=== PATIENT | male | born 1990 | race Caucasian/White ===

== ENCOUNTER → 2017-02-07 | Outpatient (CLI) | payer OTHER ==
[~2017-02-07] MED LIST: BUPR1SUB22 PO; IBUP-1050 PO; LEVE500T13 PO
== END | disposition home or self-care (01) ==
LOC: C.LAB 19:48
DX: Z02.83 Encounter for blood-alcohol and blood-drug test (principal)

== ENCOUNTER 2017-04-02 01:13 | Emergency (ER) | payer BC, OTHER ==
[~2017-04-02] VITALS: Ht 175.3 cm; Wt 89.5 kg
[~2017-04-02 01:13] MED LIST changes: -BUPR1SUB22 PO; -LEVE500T13 PO
[2017-04-02 01:19] VITALS: Ht 175.3 cm; Wt 89.5 kg
[2017-04-02] MEDS ORDERED: SODIUM CHLORIDE 0.9% 1000ML 1,000 ML IV STA (01:31)
[2017-04-02] MEDS ORDERED: LORAZEPAM 2 MG/ML 1 ML VIAL IV STA (01:31)
--- NOTE | 2017-04-02 01:37 | EMERGENCY ROOM VISIT NOTE ---
History Report prepared by Sonidoibrayna: Nico Hurley Under the Supervision of: Dr. Efrain Trujillo M.D. First contact with patient: 01:23 Chief Complaint: SEIZURE Stated Complaint: SEIZURE,SHAKINESS, HEADACHE History of Present Illness The patient is a 27 year old male who presents to the Emergency Room with complaints of a resolved seizure that occurred just prior to arrival. The patient's significant other came out of the bathroom and found him on the ground. The patient was unresponsive for about two minutes. He bit his tongue and injured the outside of his nose. He also complains of a headache and leg soreness. The significant other notes that he was confused after he came to. The patient was feeling jittery and anxious all day. He does not have any personal or known family history of seizures. He has been on Suboxone for the past 1/2 year. He takes it usually three times per day and has not had any previous issues with it. He denies recent medication changes. He may have used Xanax one month ago but denies regular benzo use. He also denies cocaine or other street drug use and does not regularly drink alcohol. 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 Source of History: patient, spouse/significant other Onset: just prior to arrival Position: other (global) Quality: other (seizure) Timing: resolved Associated Symptoms: + LOC, + headache Review of Systems See HPI for pertinent positives & negatives. A total of 10 systems reviewed and were otherwise negative. Past Medical & Surgical Medical Problems: (1) No known health problems (2) Tonsillitis Family History Diabetes mellitus Social History Smoking Status: Current Every Day Smoker Marital Status: in relationship Housing Status: lives with significant other Occupation Status: employed Current/Historical Medications Scheduled Buprenorphine Hcl-Naloxone Hcl (Suboxone 2-0.5 Mg), 1 TAB PO Q 3 DAYS Levetiracetam (Keppra), 1 TAB PO BID Allergies Coded Allergies: No Known Allergies (Unverified , 04/02/17) Physical Exam Vital Signs Date Time Temp Pulse Resp B/P Pulse Ox O2 Delivery O2 Flow Rate FiO2 04/02/17 04:10 89 130/63 95 04/02/17 03:08 36.8 94 120/87 95 Room Air 04/02/17 01:19 37.2 116 18 129/79 95 Room Air Physical Exam GENERAL: Patient is anxious appearing in mild distress. HEENT: Petechia over maxillary sinuses, bruise over the left nasal bridge and over the left tongue, mucous membranes moist, no nasal congestion, no scleral icterus. NECK: No stridor, no adenopathy, no meningismus, trachea is midline. LUNGS: No dyspnea. Clear to auscultation and equal bilaterally. No wheeze, no rhonchi. HEART: Mildly tachycardic, regular rhythm. No murmurs, rubs, gallops appreciated. ABDOMEN: Soft, nontender, bowel sounds positive, no masses appreciated, no peritonitis. BACK: No midline tenderness, no CVA tenderness EXTREMITIES: Normal motion all extremities, no cyanosis, no edema. NEUROLOGIC: Alert and oriented, no acute motor or sensory deficits, no focal weakness, cranial nerves grossly intact. SKIN: Petechia over maxillary sinuses, no jaundice, no diaphoresis. Medical Decision & Procedures ER Provider Diagnostic Interpretation: Radiology results and stated below per my review and radiologist interpretation: CT HEAD: No acute intracranial process. Radiologist: Josh Tellez MD. X ray results are stated below per my interpretation: Chest: 1 view: No infiltrate, no effusion, normal cardiac border. Laboratory Results 04/02/17 01:45 Red Blood Count 5.08, Mean Corpuscular Volume 89.2, Mean Corpuscular Hemoglobin 32.5, Mean Corpuscular Hemoglobin Concent 36.4, Mean Platelet Volume 10.5, Neutrophils (%) (Auto) 68.5, Lymphocytes (%) (Auto) 22.3, Monocytes (%) (Auto) 6.9, Eosinophils (%) (Auto) 1.9, Basophils (%) (Auto) 0.3, Neutrophils # (Auto) 5.32, Lymphocytes # (Auto) 1.73, Monocytes # (Auto) 0.54, Eosinophils # (Auto) 0.15, Basophils # (Auto) 0.02 04/02/17 01:45 Test 04/02/17 01:45 04/02/17 02:00 White Blood Count 7.77 K/uL (4.8-10.8) Red Blood Count 5.08 M/uL (4.7-6.1) Hemoglobin 16.5 g/dL (14.0-18.0) Hematocrit 45.3 % (42-52) Mean Corpuscular Volume 89.2 fL (80-100) Mean Corpuscular Hemoglobin 32.5 pg (25-34) Mean Corpuscular Hemoglobin Concent 36.4 g/dl (32-36) Platelet Count 256 K/uL (130-400) Mean Platelet Volume 10.5 fL (7.4-10.4) Neutrophils (%) (Auto) 68.5 % Lymphocytes (%) (Auto) 22.3 % Monocytes (%) (Auto) 6.9 % Eosinophils (%) (Auto) 1.9 % Basophils (%) (Auto) 0.3 % Neutrophils # (Auto) 5.32 K/uL (1.4-6.5) Lymphocytes # (Auto) 1.73 K/uL (1.2-3.4) Monocytes # (Auto) 0.54 K/uL (0.11-0.59) Eosinophils # (Auto) 0.15 K/uL (0-0.5) Basophils # (Auto) 0.02 K/uL (0-0.2) RDW Standard Deviation 38.4 fL (36.4-46.3) RDW Coefficient of Variation 11.8 % (11.5-14.5) Immature Granulocyte % (Auto) 0.1 % Immature Granulocyte # (Auto) 0.01 K/uL (0.00-0.02) Anion Gap 8.0 mmol/L (3-11) Est Creatinine Clear Calc Drug Dose 113.6 ml/min Estimated GFR () 107.6 Estimated GFR (Non- 92.8 BUN/Creatinine Ratio 14.9 (10-20) Calcium Level 9.5 mg/dl (8.5-10.1) Total Bilirubin 0.3 mg/dl (0.2-1) Direct Bilirubin < 0.1 mg/dl (0-0.2) Aspartate Amino Transf (AST/SGOT) 23 U/L (15-37) Alanine Aminotransferase (ALT/SGPT) 41 U/L (12-78) Alkaline Phosphatase 91 U/L (45-117) Total Creatine Kinase 249 U/L (39-308) Troponin I < 0.015 ng/ml (0-0.045) Total Protein 8.1 gm/dl (6.4-8.2) Albumin 4.7 gm/dl (3.4-5.0) Urine Color YELLOW Urine Appearance CLEAR (CLEAR) Urine pH 5.0 (4.5-7.5) Urine Specific [place] 1.017 (1.000-1.030) Urine Protein 1+ (NEG) Urine Glucose (UA) NEG (NEG) Urine Ketones TRACE (NEG) Urine Occult Blood 1+ (NEG) Urine Nitrite NEG (NEG) Urine Bilirubin NEG (NEG) Urine Urobilinogen NEG (NEG) Urine Leukocyte Esterase SMALL (NEG) Urine WBC (Auto) 10-30 /hpf (0-5) Urine RBC (Auto) 0-4 /hpf (0-4) Urine Hyaline Casts (Auto) 1-5 /lpf (0-5) Urine Epithelial Cells (Auto) 20-30 /lpf (0-5) Urine Bacteria (Auto) NEG (NEG) Urine Opiates Screen NEG (NEG) Urine Methadone, Qualitative NEG (NEG) Urine Barbiturates NEG (NEG) Urine Phencyclidine (PCP) Level NEG (NEG) Ur Amphetamine/Methamphetamine NEG (NEG) MDMA (Ecstasy) Screen NEG (NEG) Urine Benzodiazepines Screen POS (NEG) Urine Cocaine Metabolite NEG (NEG) Urine Marijuana (THC) NEG (NEG) Laboratory results as reviewed by me. Medications Administered Medications (Trade) Dose Ordered Sig/Becky Route Start Time Stop Time Status Last Admin Dose Admin Sodium Chloride (Nss 1000ml) 1,000 ml @ 999 mls/hr Q1H1M STAT IV 04/02/17 01:31 04/02/17 02:31 DC 04/02/17 01:46 999 MLS/HR Lorazepam (Ativan Inj) 1 mg NOW STAT IV 04/02/17 01:31 04/02/17 01:34 DC 04/02/17 01:46 1 MG Acetaminophen (Tylenol Tab) 1,000 mg NOW STAT PO 04/02/17 02:00 04/02/17 02:01 DC 04/02/17 02:23 1,000 MG Ketorolac Tromethamine (Toradol Inj) 30 mg NOW STAT IV 04/02/17 02:36 04/02/17 02:37 DC 04/02/17 02:40 30 MG Levetiracetam (Keppra Tab) 500 mg NOW STAT PO 04/02/17 03:41 04/02/17 03:42 DC 04/02/17 04:03 500 MG Lorazepam (Ativan 1MG Home Pack) 1 homepack UD ONCE PO 04/02/17 03:45 04/02/17 03:46 DC 04/02/17 04:03 1 HOMEPACK ED Course 0130: The patient was evaluated in room B4b. A complete history and physical exam was performed. 0131: Ativan 1 mg IV, NSS 1000 ml @ 999 mls/hr. 0200: Tylenol 1000 mg PO. 0235: The patient's body is sore but his headache has improved. He denies neck stiffness. 0236: Toradol 30 mg IV. 0330: Discussed the case with Dr. Vazquez, Neurologist. He states that is would be reasonable to start the patient on Keppra. 0341: Keppra 500 mg PO. 0345: Ativan 1 mg PO homepack. 0349: Case management spoke with the patient about Neurology follow up. Medical Decision Differential: Primary Seizure Disorder, Toxicological, Infectious, SAH, Trauma, Electrolyte Abnormality, Cardiac Abnormality, Meningitis/Encephalitis, Psychiatric, amongst other pathologies entertained. 27 yr old male arrives for evaluation of seizure. 2 min witnessed with post- ictal period. Petechiae face/upper chest along with tongue bite consistent with seizure. Neuro intact without any evidence meningitis by examination. CT head without acute findings. CXR clear. Labs unremarkable. Patient feeling improved with Tyl/Toradol/Fluids. Discussed with Neuro who advise starting Keppra 500mg BID and outpatient follow up. Patient given Ativan to go as he has a pre-seizure feeling of shakiness thus will have him use Ativan if he feels like that again. Reviewed no driving and that I sent form to state about his seizure. Discussed symptoms requiring RTED. Stable after several hours in ED. Going home with significant other. Consults Time Called: [phone] Consulting Physician: Dr. Vazquez, Neurologist. Returned Call: [phone] He states that is would be reasonable to start the patient on Keppra. Impression Primary Impression: Seizure Scribe Attestation The scribe's documentation has been prepared under my direction and personally reviewed by me in its entirety. I confirm that the note above accurately reflects all work, treatment, procedures, and medical decision making performed by me. Departure Information Dispostion Home / Self-Care Prescriptions Levetiracetam (KEPPRA) 500 Mg Tab 1 TAB PO BID for 30 Days, #60 TAB 5 Refills Prov: Efrain Trujillo M.D. 04/02/17 Referrals Ari Vazquez M.D. Forms HOME CARE DOCUMENTATION FORM, IMPORTANT VISIT INFORMATION Patient Instructions ED Seizure New Onset Unk Cause, My [facility] Additional Instructions You must not drive nor do any dangerous activities as if you have another seizure you could harm yourself or others.
[2017-04-02] MEDS ORDERED: BUPR1SUB22 PO (01:46)
[2017-04-02 01:55] LABS: BASO % 0.3 %; BASO ABS # 0.02 K/uL (0-0.2); COMPLETE YES; EOS % 1.9 %; HEMATOCRIT 45.3 % (42-52); IG% 0.1 %; LYMPH % 22.3 %; LYMPH ABS # 1.73 K/uL (1.2-3.4); MEAN CELL VOLUME 89.2 fL (80-100); MEAN CORPUSCULAR HEMOGLOBIN 32.5 pg (25-34); MEAN CORPUSCULAR HGB CONC 36.4 g/dl (32-36); MEAN PLATELET VOLUME 10.5 fL (7.4-10.4); MONO % 6.9 %; NEUT % 68.5 %; PLATELET COUNT 256 K/uL (130-400); RED BLOOD COUNT 5.08 M/uL (4.7-6.1); WHITE BLOOD COUNT 7.77 K/uL (4.8-10.8)
[2017-04-02] MEDS ORDERED: ACETAMINOPHEN 500 MG TAB PO STA (02:00)
[2017-04-02 02:09] LABS: MANUAL MICROSCOPIC REQUIRED? NO; REVIEW REQ? NO; URINE APPEARANCE CLEAR (CLEAR); URINE BILIRUBIN NEG (NEG); URINE COLOR YELLOW; URINE EPITHELIAL CELL AUTO 20-30 /lpf (0-5); URINE NITRITE NEG (NEG); URINE SPECIFIC GRAVITY 1.017 (1.000-1.030); UROBILINOGEN NEG (NEG); ZZUR CULT IF INDIC CLEAN CATCH YES
[2017-04-02 02:17] LABS: ALT/SGPT 41 U/L (12-78); AST/SGOT 23 U/L (15-37); BLOOD UREA NITROGEN 16 mg/dl (7-18); BUN/CREATININE RATIO 14.9 (10-20); CALCIUM 9.5 mg/dl (8.5-10.1); CARBON DIOXIDE 27 mmol/L (21-32); CHLORIDE 104 mmol/L (98-107); GLUCOSE 154 mg/dl (70-99); POTASSIUM 3.9 mmol/L (3.5-5.1); SODIUM 139 mmol/L (136-145)
[2017-04-02 02:22] LABS: ALKALINE PHOSPHATASE 91 U/L (45-117)
[2017-04-02 02:29] LABS: BENZODIAZEPINE, URINE POS (NEG); COCAINE,URINE NEG (NEG); PHENCYCLIDINE, URINE NEG (NEG)
[2017-04-02] MEDS ORDERED: KETOROLAC TROMETHAMINE 30 MG/ML VIAL IV STA (02:36)
[2017-04-02 03:08] VITALS: TEMP 36.8
[2017-04-02] MEDS ORDERED: LEVETIRACETAM 500 MG TAB PO STA (03:41)
[2017-04-02] MEDS ORDERED: LEVE500T13 PO (03:43)
[2017-04-02] MEDS ORDERED: ATIVAN 1MG HOMEPACK PO ONE (03:45)
[2017-04-02 04:10] VITALS: BP 130/63; PULSE 89; O2SAT 95
--- NOTE | 2017-04-02 06:56 | DIAGNOSTIC IMAGING REPORT ---
CT OF THE HEAD WITHOUT CONTRAST CLINICAL HISTORY: New onset seizure. COMPARISON STUDY: Head CT February 24, 2011. CT DOSE: 537.48 mGy.cm TECHNIQUE: Helical axial images of the head were obtained without IV contrast. Automated exposure control was utilized for the study. FINDINGS: No acute intracranial hemorrhage, midline shift or mass effect is present. Ventricular system is normal. Basilar cisterns are patent. There are no extra-axial collections. Eldridge-white differentiation is maintained. There are no findings to suggest acute dural sinus thrombosis or acute territorial infarct. There is no calvarial fracture. IMPRESSION: No acute intracranial findings. Electronically signed by: Marty Caceres M.D. 04/02/2017 6:55 AM Dictated Date/Time: 04/02/2017 6:53 AM
--- NOTE | 2017-04-02 07:14 | DIAGNOSTIC IMAGING REPORT ---
CHEST ONE VIEW PORTABLE HISTORY: seizure COMPARISON: None. FINDINGS: The lungs are clear. Cardiac silhouette is normal in size. No pleural effusions. No pneumothorax. Old healed left clavicle fracture. IMPRESSION: No acute process. Electronically signed by: Obed Lagos M.D. 04/02/2017 7:13 AM Dictated Date/Time: 04/02/2017 7:12 AM
[2017-04-04 13:08] LABS: HYDROXYETHYLFLURAZEPAM CONF NEGATIVE NG/ML (CUTOFF=50); HYDROXYMIDAZOLAM NEGATIVE NG/ML (CUTOFF=50); HYDROXYTRIAZOLAM CONF NEGATIVE NG/ML (CUTOFF=50); TEMAZEPAM CONF NEGATIVE NG/ML (CUTOFF=50)
== END 2017-04-02 04:12 | disposition home or self-care (01) ==
LOC: C.EDB 01:15
DX: R56.9 Unspecified convulsions (principal); R51 Headache; F17.210 Nicotine dependence, cigarettes, uncomplicated

== ENCOUNTER 2017-04-19 13:23 | Emergency (ER) | payer BC ==
[~2017-04-19] VITALS: Ht 172.7 cm; Wt 89.0 kg
[~2017-04-19 13:23] MED LIST changes: +BUPR1SUB22 PO; -IBUP-1050 PO; +LEVE500T13 PO
[2017-04-19 13:27] VITALS: TEMP 36.6; Ht 172.7 cm; Wt 89.0 kg
[2017-04-19 13:52] VITALS: O2SAT 99
[2017-04-19 14:11] LABS: BASO % 0.5 %; BASO ABS # 0.03 K/uL (0-0.2); COMPLETE YES; EOS % 2.7 %; HEMATOCRIT 45.1 % (42-52); IG% 0.2 %; LYMPH % 32.4 %; LYMPH ABS # 1.89 K/uL (1.2-3.4); MEAN CELL VOLUME 88.3 fL (80-100); MEAN CORPUSCULAR HEMOGLOBIN 31.9 pg (25-34); MEAN CORPUSCULAR HGB CONC 36.1 g/dl (32-36); MEAN PLATELET VOLUME 10.6 fL (7.4-10.4); MONO % 9.4 %; NEUT % 54.8 %; PLATELET COUNT 243 K/uL (130-400); RED BLOOD COUNT 5.11 M/uL (4.7-6.1); WHITE BLOOD COUNT 5.83 K/uL (4.8-10.8)
[2017-04-19 14:21] LABS: BLOOD UREA NITROGEN 12 mg/dl (7-18); BUN/CREATININE RATIO 10.9 (10-20); CALCIUM 9.5 mg/dl (8.5-10.1); CARBON DIOXIDE 25 mmol/L (21-32); CHLORIDE 107 mmol/L (98-107); GLUCOSE 86 mg/dl (70-99); POTASSIUM 4.1 mmol/L (3.5-5.1); SODIUM 140 mmol/L (136-145)
[2017-04-19 14:23] LABS: ALB/GLOB RATIO 1.2 (0.9-2); ALKALINE PHOSPHATASE 100 U/L (45-117); ALT/SGPT 44 U/L (12-78); AST/SGOT 20 U/L (15-37)
[2017-04-19] MEDS ORDERED: ACETAMINOPHEN 500 MG TAB PO STA (14:42)
--- NOTE | 2017-04-19 14:47 | EMERGENCY ROOM VISIT NOTE ---
History First contact with patient: 14:20 Chief Complaint: SEIZURE Stated Complaint: HAD SEIZURE - DIZZY - HEADACHE Nursing Triage Summary: PT WITNESSED GRAND MAL SEIZURE LASTING 1 MINUTE PER FRIEND. PT HAD ONE APPROX 1 MOS AGO, BUT HAS NOT FOLLOW UP AND IS NOT TAKING ANY MEDS. PT WAS POST ICTAL PER FRIEND. PT NOW HAS HEADACHE AND DIZZINESS. History of Present Illness The patient is a 27 year old male who presents to the Emergency Room with complaints of seizure. The patient had a seizure just prior to arrival. The patient had a seizure at the beginning of the month and was seen at this emergency department. He had an extensive workup. He was started on Keppra. He states that he never filled the prescription for Keppra. He states that he never followed up with neurology. He states he did not think it was that important. The patient states he felt as though he was going to have a seizure earlier. He states that he told his friend and he lay down on the bed. She reports a grand mal type seizure that lasted approximately 1 minute. The patient was postictal for a short time afterwards the patient states he bit his tongue. The patient denies any earache, sore throat, cough, fever. He denies any pain in his chest or trouble breathing. He denies abdominal pain, nausea or vomiting. The patient states that he takes Suboxone for opiate addiction and has been on that for one year. He states he drinks alcohol occasionally but does not feel as though he drinks enough to have alcohol withdrawal. He states that he did use cocaine once since the first seizure. He denies any other drug use. Review of Systems A 10 system review of systems was completed with positives and pertinent negatives listed in the HPI. Past Medical/Surgical History Medical Problems: (1) No known health problems (2) Tonsillitis Family History Diabetes mellitus Social History Smoking Status: Current Every Day Smoker Marital Status: in relationship Housing Status: lives with significant other Occupation Status: employed Current/Historical Medications Scheduled Buprenorphine Hcl-Naloxone Hcl (Suboxone 2-0.5 Mg), 1 TAB PO Q 3 DAYS Levetiracetam (Keppra), 1 TAB PO BID Allergies Coded Allergies: No Known Allergies (Unverified , 04/02/17) Physical Exam Vital Signs Date Time Temp Pulse Resp B/P Pulse Ox O2 Delivery O2 Flow Rate FiO2 04/19/17 18:17 66 18 120/72 97 04/19/17 17:48 75 04/19/17 17:30 67 18 125/76 93 Room Air 04/19/17 15:31 73 18 125/66 94 04/19/17 13:52 99 Room Air 04/19/17 13:52 98 18 147/91 99 04/19/17 13:45 102 04/19/17 13:27 36.6 109 16 141/84 94 Room Air Physical Exam VITALS: Vitals are noted on the nurse's note and reviewed by myself. Vital signs stable. The patient is afebrile. GENERAL: This is a 27-year-old male, in no acute distress, nondiaphoretic, well- developed well-nourished. SKIN: The skin was without rashes, erythema, edema, or bruising. There is no tenting of the skin. Capillary reflex less than 2 seconds. HEAD: Normocephalic atraumatic. EARS: External auditory canals clear, tympanic membranes pearly [place] without erythema or effusion bilaterally. EYES: Pupils equal round and reactive to light and accommodation. Conjunctivae without injection, sclerae without icterus. Extraocular movements intact. NOSE: Patent, turbinates without inflammation or discharge. MOUTH: Mucous membranes moist. Tonsils are not enlarged. Pharynx without erythema or exudate. Uvula midline. Airway patent. Tongue does not deviate. There is no obvious laceration or bleeding. The tongue. NECK: Supple without nuchal rigidity. No lymphadenopathy. No thyromegaly. Cervical spine is nontender. No JVD. HEART: Regular rate and rhythm without murmurs gallops or rubs. LUNGS: Clear to auscultation bilaterally without wheezes, rales or rhonchi. No dullness to percussion. No retractions or accessory muscle use. ABDOMEN: Positive bowel sounds x 4. Soft, nontender, without masses or organomegaly. Hensley sign negative. MUSCULOSKELETAL: No muscle atrophy, erythema, or edema noted. Full range of motion without joint tenderness in all extremities. No tenderness to palpation. Normal gait. Strength 5/5 throughout. NEURO: Patient was alert and oriented to person place and time. No focal neurological deficits. Medical Decision & Procedures Laboratory Results 04/19/17 13:50 Red Blood Count 5.11, Mean Corpuscular Volume 88.3, Mean Corpuscular Hemoglobin 31.9, Mean Corpuscular Hemoglobin Concent 36.1, Mean Platelet Volume 10.6, Neutrophils (%) (Auto) 54.8, Lymphocytes (%) (Auto) 32.4, Monocytes (%) (Auto) 9.4, Eosinophils (%) (Auto) 2.7, Basophils (%) (Auto) 0.5, Neutrophils # (Auto) 3.19, Lymphocytes # (Auto) 1.89, Monocytes # (Auto) 0.55, Eosinophils # (Auto) 0.16, Basophils # (Auto) 0.03 04/19/17 13:50 Test 04/19/17 13:50 04/19/17 15:00 White Blood Count 5.83 K/uL (4.8-10.8) Red Blood Count 5.11 M/uL (4.7-6.1) Hemoglobin 16.3 g/dL (14.0-18.0) Hematocrit 45.1 % (42-52) Mean Corpuscular Volume 88.3 fL (80-100) Mean Corpuscular Hemoglobin 31.9 pg (25-34) Mean Corpuscular Hemoglobin Concent 36.1 g/dl (32-36) Platelet Count 243 K/uL (130-400) Mean Platelet Volume 10.6 fL (7.4-10.4) Neutrophils (%) (Auto) 54.8 % Lymphocytes (%) (Auto) 32.4 % Monocytes (%) (Auto) 9.4 % Eosinophils (%) (Auto) 2.7 % Basophils (%) (Auto) 0.5 % Neutrophils # (Auto) 3.19 K/uL (1.4-6.5) Lymphocytes # (Auto) 1.89 K/uL (1.2-3.4) Monocytes # (Auto) 0.55 K/uL (0.11-0.59) Eosinophils # (Auto) 0.16 K/uL (0-0.5) Basophils # (Auto) 0.03 K/uL (0-0.2) RDW Standard Deviation 37.2 fL (36.4-46.3) RDW Coefficient of Variation 11.6 % (11.5-14.5) Immature Granulocyte % (Auto) 0.2 % Immature Granulocyte # (Auto) 0.01 K/uL (0.00-0.02) Anion Gap 8.0 mmol/L (3-11) Est Creatinine Clear Calc Drug Dose 111.3 ml/min Estimated GFR () 107.6 Estimated GFR (Non- 92.8 BUN/Creatinine Ratio 10.9 (10-20) Calcium Level 9.5 mg/dl (8.5-10.1) Magnesium Level 2.6 mg/dl (1.8-2.4) Total Bilirubin 0.3 mg/dl (0.2-1) Aspartate Amino Transf (AST/SGOT) 20 U/L (15-37) Alanine Aminotransferase (ALT/SGPT) 44 U/L (12-78) Alkaline Phosphatase 100 U/L (45-117) Troponin I < 0.015 ng/ml (0-0.045) Total Protein 8.5 gm/dl (6.4-8.2) Albumin 4.7 gm/dl (3.4-5.0) Globulin 3.8 gm/dl (2.5-4.0) Albumin/Globulin Ratio 1.2 (0.9-2) Thyroid Stimulating Hormone (TSH) 2.370 uIu/ml (0.300-4.500) Urine Color YELLOW Urine Appearance CLEAR (CLEAR) Urine pH 6.0 (4.5-7.5) Urine Specific [place] 1.015 (1.000-1.030) Urine Protein TRACE (NEG) Urine Glucose (UA) NEG (NEG) Urine Ketones NEG (NEG) Urine Occult Blood TRACE (NEG) Urine Nitrite NEG (NEG) Urine Bilirubin NEG (NEG) Urine Urobilinogen NEG (NEG) Urine Leukocyte Esterase SMALL (NEG) Urine WBC (Auto) 10-30 /hpf (0-5) Urine RBC (Auto) 0-4 /hpf (0-4) Urine Hyaline Casts (Auto) 1-5 /lpf (0-5) Urine Epithelial Cells (Auto) 10-20 /lpf (0-5) Urine Bacteria (Auto) NEG (NEG) Urine Opiates Screen NEG (NEG) Urine Methadone, Qualitative NEG (NEG) Urine Barbiturates NEG (NEG) Urine Phencyclidine (PCP) Level NEG (NEG) Ur Amphetamine/Methamphetamine NEG (NEG) MDMA (Ecstasy) Screen NEG (NEG) Urine Benzodiazepines Screen NEG (NEG) Urine Cocaine Metabolite NEG (NEG) Urine Marijuana (THC) NEG (NEG) Medications Administered Medications (Trade) Dose Ordered Sig/Becky Route Start Time Stop Time Status Last Admin Dose Admin Acetaminophen 1000 mg 1,000 mg NOW STAT PO 04/19/17 14:42 04/19/17 14:44 DC 04/19/17 14:51 1,000 MG Levetiracetam/ Dextrose (Keppra Iv/D5 100ml) 110 ml @ 440 mls/hr ONE ONCE IV 04/19/17 16:45 04/19/17 16:59 DC 04/19/17 17:39 440 MLS/HR Procedure The patient was monitored on a cardiac care nurse. They maintained a normal sinus rhythm without ectopy. ECG Indication: weakness Rate (beats per minute): 89 Rhythm: normal sinus Findings: no acute ischemic change Comparison ECG Date: no prior available ED Course The patient was seen and examined. Previous visits were reviewed. The patient does not have a fever or leukocytosis. He is not anemic. He does not have any significant electrolyte abnormalities. Troponin is not elevated. TSH is within normal limits. Urine drug screen is negative. Urinalysis suggests contamination. A urine culture is pending. The patient denies any dysuric emergency, frequency, penile discharge, penile rashes. Given that he is asymptomatic, we will await urine culture. The patient was hydrated with normal saline He was given 1 g IV Keppra loading dose The patient presents to the emergency department with a seizure. This is the second seizure this month and only the second he has ever had. He has an extensive evaluation earlier this month in emergency department including negative CT scan of the brain. The patient did not fall or hit his head. The CT scan was not repeated at this time. The laboratory studies were otherwise unremarkable. Urine culture is pending given that the urine seems to be contaminated versus urinary tract infection but he is completely asymptomatic. I discussed the case with Dr. Aldana. He is in agreement with a 1 g IV loading dose of Keppra, Keppra 500 mg twice a day and follow-up with Dr. Vazquez as he was consulted for the patient earlier this month. I counseled the patient and stressed the importance of follow-up with neurology and taking the Keppra. 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 I suggest the patient refrain from alcohol and drug use. He should return to the ER if any worsening symptoms. The case was discussed with Dr. juan who agrees with the assessment and treatment plan. Medical Decision DIFFERENTIAL DIAGNOSIS: Aortic dissection, myocarditis, pericarditis, cervical disc disease, costochondritis, herpes zoster, rib fracture, pleuritis, pneumonia , pulmonary embolus, tension pneumothorax, anxiety disorder, somatoform disorder , choledocholithiasis, status, esophagitis, esophageal spasm, esophageal reflux , esophageal rupture, pancreatitis, peptic ulcer disease, cardiac ischemia, ST elevation [place], acute coronary syndrome, arrhythmia, coronary artery vasospasm. vavular heart disease, coronary artery disease, drug abuse, alcohol withdrawal, intracranial bleeding, TIA, CVA, intracranial mass, among others. Impression Primary Impression: Seizure Departure Information Dispostion Home / Self-Care Condition GOOD Prescriptions Levetiracetam (KEPPRA) 500 Mg Tab 1 TAB PO BID for 30 Days, #60 TAB 5 Refills Prov: Melonie Dwyer PA-C 04/19/17 Referrals No Doctor, Assigned (PCP) Ari Vazquez M.D. Patient Instructions ED Seizure Recurrent, [facility] Additional Instructions Keppra every 12 hours Contact neurology to schedule a follow up appointment for further evaluation and management Refrain from alcohol and drugs Return with worsening symptoms
[2017-04-19 15:20] LABS: MAGNESIUM 2.6 mg/dl (1.8-2.4)
[2017-04-19 15:32] LABS: BENZODIAZEPINE, URINE NEG (NEG); COCAINE,URINE NEG (NEG); PHENCYCLIDINE, URINE NEG (NEG)
[2017-04-19 15:57] LABS: URINE APPEARANCE CLEAR (CLEAR); URINE BILIRUBIN NEG (NEG); URINE COLOR YELLOW; URINE NITRITE NEG (NEG); URINE SPECIFIC GRAVITY 1.015 (1.000-1.030); UROBILINOGEN NEG (NEG); ZZUR CULT IF INDIC CLEAN CATCH YES
[2017-04-19 16:15] LABS: MANUAL MICROSCOPIC REQUIRED? NO; REVIEW REQ? NO
[2017-04-19] MEDS ORDERED: LEVETIRACETAM IV 1,000 MG in DEXTROSE 5% 100ML 100 ML IV ONE (16:45)
[2017-04-19] MEDS ORDERED: LEVE500T13 PO (17:21)
[2017-04-19 18:17] VITALS: BP 120/72; PULSE 66; O2SAT 97
== END 2017-04-19 18:18 | disposition home or self-care (01) ==
LOC: C.EDB 13:23 → C.EDA 18:18
DX: R56.9 Unspecified convulsions (principal); Z83.3 Family history of diabetes mellitus; F17.210 Nicotine dependence, cigarettes, uncomplicated; Z79.899 Other long term (current) drug therapy

== ENCOUNTER → 2017-05-22 | Outpatient (CLI) | payer BC ==
[~2017-05-22] MED LIST changes: +GADAVIST IV PRN
--- NOTE | 2017-05-22 14:39 | DIAGNOSTIC IMAGING REPORT ---
MRI OF THE BRAIN WITHOUT AND WITH IV CONTRAST SEIZURE PROTOCOL CLINICAL HISTORY: SEIZURE COMPARISON STUDY: No previous studies for comparison. TECHNIQUE: Utilizing a 1.5 Susy magnet and dedicated coil, multiplanar, multiecho imaging of the brain was performed pre and postcontrast administration. IV administration of 8.5 mL of Gadavist contrast was uneventful. Thin cut coronal T2 imaging was performed according to seizure protocol. FINDINGS: Normal study. Signal characteristics are unremarkable. No evidence for an acute ischemic process. No abnormal postcontrast enhancement. IMPRESSION: Normal study. Electronically signed by: Antonio Gama M.D. 05/22/2017 2:38 PM Dictated Date/Time: 05/22/2017 2:36 PM
== END | disposition home or self-care (01) ==
LOC: C.MRIBC 13:34
PROVIDERS: ATTEND Physician Assistant
DX: R56.9 Unspecified convulsions (principal)

== ENCOUNTER → 2017-05-22 | Outpatient (CLI) | payer BC ==
[~2017-05-22] MED LIST changes: -GADAVIST IV PRN
--- NOTE | 2017-05-22 12:04 | EEG Procedure Note ---
EEG Procedure Note Date of Service May 22, 2017. Start / End Times Start Time: 9:44 AM End Time: 10:04 AM Referring Physician KELLE Potter History This is a 27-year-old male with seizure-like activity. EEG for further evaluation of seizure etiology Home Medication List Scheduled Buprenorphine Hcl-Naloxone Hcl (Suboxone 2-0.5 Mg), 1 TAB PO Q 3 DAYS Levetiracetam (Keppra), 1 TAB PO BID Description This is a 21 electrode EEG with a single channel dedicated to limited EKG. The electrodes were placed in accordance with the International 10-20 system. At the start of the recording the patient was in an awake state. Background was well organized and composed of symmetric mixed alpha and beta frequencies. There was a symmetric well-formed moderate amplitude 10-11 Hz posterior dominant rhythm that was reactive to eye opening and closure. Hyperventilation with good effort produced no abnormalities. Intermittent photic stimulation at various frequencies produced no abnormalities. Sleep was indicated by symmetric sleep spindles Interpretation This is a normal awake and asleep routine EEG. There was no electrographic seizures or epileptiform discharges. Clinical Correlation A normal EEG does not rule out epilepsy if there is a strong clinical suspicion.
== END | disposition home or self-care (01) ==
LOC: C.NEUR 09:27
PROVIDERS: ATTEND Physician Assistant
DX: R56.9 Unspecified convulsions (principal)